=== PATIENT | male | born 1940 | race Caucasian/White ===

== ENCOUNTER 2021-09-23 09:11 | Outpatient (CLI) | payer MEDICARE, OTHER | END 2021-09-23 09:12 | disposition home or self-care (01) | LOC: CT 09:11 | PROVIDERS: ATTEND Internal Medicine Medical Oncology | DX: C90.00 Multiple myeloma not having achieved remission (principal); M89.9 Disorder of bone, unspecified | CPT/HCPCS: 76497 ==

== ENCOUNTER 2022-06-04 23:32 | Emergency (ER) | payer MEDICARE, OTHER ==
[2022-06-05 00:18] LABS: #Eosinphils 0.1 thou/uL (0.0-0.7); #Lymphocytes 1.2 thou/uL (1.20-3.40); #Monocytes 0.6 thou/uL (0.11-0.59); #Neutrophils 7.2 thou/uL (1.40-6.50); %Basophils 0.1 % (0.0-1.0); %Eosinophils 1.5 % (0.0-10.0); %Lymphocytes 13.2 % (21.0-51.0); %Monocytes 6.5 % (0.0-10.0); %Neutrophils 78.7 % (42.0-75.0); Hemoglobin 14.6 g/dL (14.0-18.0); Mean Corpuscular HGB CONC 34.2 g/dL (32.0-36.0); Mean Corpuscular Hemoglobin 34.6 pg (27.0-31.0); Platelet Count 177 10x3/uL (130-400); RBC Distribution Width 12.3 % (11.5-14.5); Red Blood Cell (RBC) Count 4.22 mill/uL (4.70-6.10); White Blood Cell (WBC) Count 9.2 10x3/uL (4.8-10.8)
[2022-06-05 00:41] LABS: ALT (SGPT) 19 U/L (8-55); AST (SGOT) 21 U/L (5-34); Alkaline Phosphatase 67 U/L (40-110); Anion Gap 14 mmol/L (10-20); BUN (Urea Nitrogen) 18 mg/dL (8.4-25.7); Bilirubin, Total 0.9 mg/dL (0.2-1.2); CK (CPK) 102 U/L (30-200); Calc. Creatinine Clearance 0 mL/min (70-130); Calcium 9.4 mg/dL (7.8-10.44); Carbon Dioxide 23 mmol/L (23-31); Chloride 103 mmol/L (98-107); Estimated GFR 48; Globulin 5.2 g/dL (2.4-3.5); Glucose 128 mg/dL (83-110); Lipase 60 U/L (8-78); Potassium 4.2 mmol/L (3.5-5.1); Protein, Total 9.2 g/dL (5.8-8.1); Sodium 136 mmol/L (136-145)
[2022-06-05 01:24] LABS: Bacteria/HPF Rare-Few HPF (None Seen); Bilirubin Negative (Negative); Blood, Urine Negative (Negative); Clarity Clear (Clear); Glucose, Urine (Dipstick) Normal (Negative); Ketone, Urine Trace mg/dL (Negative); Leukocyte 75 Leu/uL (Negative); Nitrite Negative (Negative); Protein, Urine (Dipstick) 30 mg/dL (Neg-Trace); RBC/HPF 0-3 HPF (0-3); Specific Gravity, Urine 1.031 (1.002-1.036); Squamous Epithelial 0-3 HPF (0-3); Urobilinogen Normal mg/dL (Less than 2); pH, Urine 5.5 (5.0-9.0)
== END 2022-06-05 03:40 | disposition home or self-care (01) ==
LOC: ERS 23:32
DX: K59.00 Constipation, unspecified (principal)
CPT/HCPCS: 36415; 74176; 80053; 81003; 81015; 82550; 83690; 85025

== ENCOUNTER 2022-07-25 13:23 | Outpatient (CLI) | payer MEDICARE, OTHER | END 2022-07-25 13:24 | disposition home or self-care (01) | LOC: CT 13:23 | PROVIDERS: ATTEND Internal Medicine Medical Oncology | DX: C90.00 Multiple myeloma not having achieved remission (principal); M89.9 Disorder of bone, unspecified | CPT/HCPCS: 76497 ==

== ENCOUNTER 2022-10-13 12:13 | Emergency (ER) | payer MEDICARE, OTHER ==
[2022-10-13 13:16] LABS: #Eosinphils 0.4 thou/uL (0.0-0.7); #Monocytes 0.4 thou/uL (0.11-0.59); #Neutrophils 3.1 thou/uL (1.40-6.50); %Basophils 0.8 % (0.0-1.0); %Eosinophils 6.6 % (0.0-10.0); %Monocytes 7.7 % (0.0-10.0); %Neutrophils 58.7 % (42.0-75.0); Hemoglobin 14.2 g/dL (14.0-18.0); Mean Corpuscular HGB CONC 32.9 g/dL (32.0-36.0); Mean Corpuscular Hemoglobin 32.9 pg (27.0-31.0); Mean Corpuscular Volume 99.8 fl (78.0-98.0); Mean Platelet Volume 10.4 fL (7.4-10.4); Platelet Count 225 10x3/uL (130-400); Red Blood Cell (RBC) Count 4.32 mill/uL (4.70-6.10); White Blood Cell (WBC) Count 5.3 10x3/uL (4.8-10.8)
[2022-10-13 13:51] LABS: ALT (SGPT) 19 U/L (8-55); AST (SGOT) 16 U/L (5-34); Albumin 3.8 g/dL (3.4-4.8); Alkaline Phosphatase 88 U/L (40-110); Anion Gap 12 mmol/L (10-20); BUN (Urea Nitrogen) 10 mg/dL (8.4-25.7); Bilirubin, Total 0.7 mg/dL (0.2-1.2); Calc. Creatinine Clearance 0 mL/min (70-130); Calcium 9.8 mg/dL (7.8-10.44); Carbon Dioxide 27 mmol/L (23-31); Chloride 100 mmol/L (98-107); Estimated GFR 45; Globulin 5.7 g/dL (2.4-3.5); Glucose 94 mg/dL (83-110); Lipase 38 U/L (8-78); Potassium 4.3 mmol/L (3.5-5.1); Protein, Total 9.5 g/dL (5.8-8.1); Sodium 135 mmol/L (136-145)
[2022-10-13] MEDS ORDERED: HYDROmorphone 0.5 MG/0.5 ML SYRINGE ONE (16:36)
== END 2022-10-13 17:15 | disposition home or self-care (01) ==
LOC: ERS 12:13
DX: M54.6 Pain in thoracic spine (principal); I10 Essential (primary) hypertension; Z79.899 Other long term (current) drug therapy
CPT/HCPCS: 71045; 80053; 83690; 83880; 84484; 85025; 93005; 96374; J1170

== ENCOUNTER 2022-10-26 13:58 | Outpatient (CLI) | payer MEDICARE, OTHER | END 2022-10-26 13:59 | disposition home or self-care (01) | LOC: BICCT 13:58 | PROVIDERS: ATTEND Family Medicine | DX: S22.059A Unspecified fracture of T5-T6 vertebra, initial encounter for closed fracture (principal); S22.051A Stable burst fracture of T5-T6 vertebra, initial encounter for closed fracture; M47.814 Spondylosis without myelopathy or radiculopathy, thoracic region; Z98.1 Arthrodesis status; D47.2 Monoclonal gammopathy | CPT/HCPCS: 36415; 72128; 80053; 82248; 83615; 83883; 84100; 84155; 84165; 84550 ==

== ENCOUNTER 2022-11-17 13:22 | Outpatient (CLI) | payer MEDICARE, OTHER | END 2022-11-17 13:23 | disposition home or self-care (01) | LOC: BICMAMMO 13:22 | PROVIDERS: ATTEND Internal Medicine Medical Oncology | DX: Z13.820 Encounter for screening for osteoporosis (principal); C90.00 Multiple myeloma not having achieved remission; D47.2 Monoclonal gammopathy; M81.0 Age-related osteoporosis without current pathological fracture | CPT/HCPCS: 77080 ==

== ENCOUNTER 2022-12-08 10:36 | Outpatient (CLI) | payer MEDICARE, OTHER ==
[~2022-12-08 10:36] MED LIST: Magnevist 469MG/ML 20 ML VIAL ONE
== END 2022-12-08 10:37 | disposition home or self-care (01) ==
LOC: SJX 10:36
PROVIDERS: ATTEND Neurological Surgery
DX: M84.48XA Pathological fracture, other site, initial encounter for fracture (principal); M48.04 Spinal stenosis, thoracic region; D49.7 Neoplasm of unspecified behavior of endocrine glands and other parts of nervous system
CPT/HCPCS: 72157; A9579

== ENCOUNTER 2022-12-20 11:40 | Outpatient (CLI) | payer MEDICARE, OTHER ==
[~2022-12-20 11:40] MED LIST changes: +Iopamidol 370 76% 100 ML VIAL ONE; -Magnevist 469MG/ML 20 ML VIAL ONE
== END 2022-12-20 11:41 | disposition home or self-care (01) ==
LOC: CT 11:40
PROVIDERS: ATTEND Neurological Surgery
DX: G95.9 Disease of spinal cord, unspecified (principal); I87.1 Compression of vein; K76.9 Liver disease, unspecified; N28.9 Disorder of kidney and ureter, unspecified
CPT/HCPCS: 71260; 74177; Q9967

== ENCOUNTER 2023-03-07 15:52 | Outpatient (CLI) | payer MEDICARE, OTHER | END 2023-03-07 15:53 | disposition home or self-care (01) | LOC: SCSRAD 15:52 | PROVIDERS: ATTEND Family Medicine | DX: M54.50 Low back pain, unspecified (principal); M47.816 Spondylosis without myelopathy or radiculopathy, lumbar region; R93.5 Abnormal findings on diagnostic imaging of other abdominal regions, including retroperitoneum | CPT/HCPCS: 72100 ==

== ENCOUNTER 2023-04-11 14:27 | Inpatient (IN) | payer MEDICARE, OTHER ==
[2023-04-11] MEDS ORDERED: Morphine 4 MG/ML VIAL ONE (15:52)
[2023-04-11] MEDS ORDERED: traMADol HCl 50 MG TAB ONE (18:28)
[2023-04-11 18:48] LABS: #Eosinphils 0.5 thou/uL (0.0-0.7); #Monocytes 0.2 thou/uL (0.11-0.59); #Neutrophils 4.2 thou/uL (1.40-6.50); %Basophils 0.5 % (0.0-1.0); %Eosinophils 8.3 % (0.0-10.0); %Lymphocytes 19.3 % (21.0-51.0); %Monocytes 3.1 % (0.0-10.0); %Neutrophils 68.6 % (42.0-75.0); Hematocrit 38.8 % (42.0-52.0); Mean Corpuscular HGB CONC 33.5 g/dL (32.0-36.0); Mean Corpuscular Volume 101.6 fl (78.0-98.0); Mean Platelet Volume 9.9 fL (7.4-10.4); Platelet Count 244 10x3/uL (130-400); RBC Distribution Width 14.5 % (11.5-14.5); Red Blood Cell (RBC) Count 3.82 mill/uL (4.70-6.10); White Blood Cell (WBC) Count 6.2 10x3/uL (4.8-10.8)
[2023-04-11 19:10] LABS: ALT (SGPT) 62 U/L (8-55); AST (SGOT) 54 U/L (5-34); Alkaline Phosphatase 86 U/L (40-110); Anion Gap 11 mmol/L (10-20); BUN (Urea Nitrogen) 23 mg/dL (8.4-25.7); Bilirubin, Total 0.5 mg/dL (0.2-1.2); Calc. Creatinine Clearance 0 mL/min (70-130); Calcium 8.9 mg/dL (7.8-10.44); Carbon Dioxide 26 mmol/L (23-31); Chloride 103 mmol/L (98-107); Estimated GFR 45; Globulin 7.1 g/dL (2.4-3.5); Glucose 84 mg/dL (83-110); Potassium 3.7 mmol/L (3.5-5.1); Protein, Total 11.1 g/dL (5.8-8.1); Sodium 136 mmol/L (136-145)
[2023-04-11] MEDS ORDERED: Ondansetron ODT 4 MG TAB PO PRN (21:18)
[2023-04-11] MEDS ORDERED: Acetaminophen 325 MG TAB PO PRN (21:18)
[2023-04-11] MEDS ORDERED: Morphine 2 MG/ML VIAL SLOW IVP PRN (21:19)
[2023-04-11 23:15] VITALS: BMI 27.5
[2023-04-12 05:27] LABS: #Eosinphils 0.2 thou/uL (0.0-0.7); #Monocytes 0.2 thou/uL (0.11-0.59); #Neutrophils 3.6 thou/uL (1.40-6.50); %Basophils 0.4 % (0.0-1.0); %Eosinophils 4.7 % (0.0-10.0); %Lymphocytes 16.7 % (21.0-51.0); %Monocytes 3.9 % (0.0-10.0); %Neutrophils 74.1 % (42.0-75.0); Hematocrit 35.1 % (42.0-52.0); Hemoglobin 11.5 g/dL (14.0-18.0); Mean Corpuscular HGB CONC 32.8 g/dL (32.0-36.0); Mean Corpuscular Hemoglobin 33.9 pg (27.0-31.0); Mean Corpuscular Volume 103.5 fl (78.0-98.0); Platelet Count 210 10x3/uL (130-400); RBC Distribution Width 14.6 % (11.5-14.5); Red Blood Cell (RBC) Count 3.39 mill/uL (4.70-6.10); White Blood Cell (WBC) Count 4.9 10x3/uL (4.8-10.8)
[2023-04-12 05:58] LABS: BUN (Urea Nitrogen) 21 mg/dL (8.4-25.7); Calc. Creatinine Clearance 56 mL/min (70-130); Calcium 8.3 mg/dL (7.8-10.44); Carbon Dioxide 25 mmol/L (23-31); Chloride 105 mmol/L (98-107); Estimated GFR 63; Glucose 112 mg/dL (83-110); Potassium 4.2 mmol/L (3.5-5.1); Sodium 136 mmol/L (136-145)
[2023-04-12 06:12] LABS: Anion Gap 10 mmol/L (10-20)
[2023-04-12] MEDS: Famotidine 20 MG TAB PO SCH ×2 (08:57→20:52)
[2023-04-12] MEDS ORDERED: traMADol HCl 50 MG TAB PO PRN (13:31)
[2023-04-12] MEDS ORDERED: Acetaminophen 500 MG TAB PO PRN (13:31)
[2023-04-12] MEDS: traMADol HCl 50 MG TAB PO PRN (23:19)
[2023-04-13] MEDS: traMADol HCl 50 MG TAB PO PRN ×2 (05:48→21:45)
[2023-04-13] MEDS: Famotidine 20 MG TAB PO SCH ×2 (09:34→21:46)
[2023-04-13] MEDS: Calcitonin,Salmon,Synthetic 200 Units NASAL PUMP 3.7 ML L NARE SCH ×2 (14:46→17:49)
[2023-04-14] MEDS ORDERED: Losartan 25 MG TAB PO SCH (09:00)
[2023-04-14] MEDS ORDERED: Calcitonin,Salmon,Synthetic 200 Units NASAL PUMP 3.7 ML R NARE SCH (09:00)
[2023-04-14] MEDS: Famotidine 20 MG TAB PO SCH (09:19)
[2023-04-14] MEDS: Calcitonin,Salmon,Synthetic 200 Units NASAL PUMP 3.7 ML L NARE SCH (09:19)
[2023-04-14] MEDS: traMADol HCl 50 MG TAB PO PRN (12:08)
[2023-04-14 12:48] VITALS: BP 167/96; TEMP 98.7
== END 2023-04-14 13:44 | disposition home or self-care (01) | DRG 552 ==
LOC: ERS 14:27 → SURG A 20:18 → OBSVTOIN 04-12 13:29
PROVIDERS: ADMIT Surgery; ATTEND Internal Medicine
DX: S22.081A Stable burst fracture of T11-T12 vertebra, initial encounter for closed fracture (principal); W18.30XA Fall on same level, unspecified, initial encounter; I10 Essential (primary) hypertension; Z79.899 Other long term (current) drug therapy; Z88.8 Allergy status to other drugs, medicaments and biological substances; Z90.49 Acquired absence of other specified parts of digestive tract; Z96.653 Presence of artificial knee joint, bilateral; S22.051A Stable burst fracture of T5-T6 vertebra, initial encounter for closed fracture; M81.0 Age-related osteoporosis without current pathological fracture; G89.29 Other chronic pain; M54.9 Dorsalgia, unspecified
CPT/HCPCS: 36415; 72128; 72131; 72146; 72148; 80048; 80053; 85025; 86140; 96372; J2270

== ENCOUNTER 2023-05-24 08:31 | Day surgery (SDC) | payer MEDICARE, OTHER ==
[2023-05-24 08:51] LABS: #Eosinphils 0.3 thou/uL (0.0-0.7); #Monocytes 0.3 thou/uL (0.11-0.59); #Neutrophils 2.2 thou/uL (1.40-6.50); %Basophils 0.5 % (0.0-1.0); %Lymphocytes 32.8 % (21.0-51.0); %Monocytes 6.1 % (0.0-10.0); %Neutrophils 52.4 % (42.0-75.0); Hematocrit 37.4 % (42.0-52.0); Hemoglobin 12.3 g/dL (14.0-18.0); Mean Corpuscular HGB CONC 32.9 g/dL (32.0-36.0); Mean Corpuscular Hemoglobin 34.9 pg (27.0-31.0); Mean Corpuscular Volume 106.3 fl (78.0-98.0); Mean Platelet Volume 9.2 fL (7.4-10.4); Platelet Count 208 10x3/uL (130-400); RBC Distribution Width 14.6 % (11.5-14.5); Red Blood Cell (RBC) Count 3.52 mill/uL (4.70-6.10); White Blood Cell (WBC) Count 4.1 10x3/uL (4.8-10.8)
[2023-05-24 09:05] LABS: INR-International Normal Ratio 1.1; PTT 25.9 sec (22.9-36.1); Prothrombin Time 14.1 sec (12.0-14.7)
[2023-05-24] MEDS ORDERED: Lidocaine 1% PF 5 ML VIAL ONE (09:59)
== END 2023-05-24 11:30 | disposition home or self-care (01) ==
LOC: CT 08:31
PROVIDERS: ATTEND Internal Medicine
PROC: 079T3ZX Drainage of Bone Marrow, Percutaneous Approach, Diagnostic (ICD-10-PCS; principal; 2023-05-24)
DX: C90.00 Multiple myeloma not having achieved remission (principal); I10 Essential (primary) hypertension; Z88.6 Allergy status to analgesic agent
CPT/HCPCS: 20225; 77012; 85025; 85097; 85610; 85730; 88184; 88185; 88237; 88264; 88280; 88305; 88311; 88313; 88342; 88365

== ENCOUNTER 2023-06-07 12:30 | Outpatient (CLI) | payer MEDICARE, OTHER | END 2023-06-07 12:31 | LOC: PET 12:30 | PROVIDERS: ATTEND Internal Medicine | DX: C90.00 Multiple myeloma not having achieved remission (principal) | CPT/HCPCS: 78815; A9552 ==

== ENCOUNTER 2023-09-20 09:06 | Outpatient (CLI) | payer MEDICARE, OTHER ==
[2023-09-20 11:18] LABS: #Basophils 0.02 10x3/uL (0.0-0.2); #Eosinphils 0.11 10x3/uL (0.0-0.5); #Monocytes 0.15 10x3/uL (0.0-1.1); #Neutrophils 5.61 10x3/uL (1.5-8.4); %Basophils 0.3 % (0.0-2.0); %Eosinophils 1.6 % (0.0-6.0); %Lymphocytes 11.6 % (18.0-47.0); %Monocytes 2.2 % (0.0-10.0); %Neutrophils 83.9 % (40.0-75.0); Hemoglobin 11.7 g/dL (13.5-17.5); Mean Corpuscular HGB CONC 33.4 g/dL (32.0-36.0); Mean Corpuscular Hemoglobin 34.7 pg (27.0-33.0); Mean Corpuscular Volume 103.9 fL (81.2-95.1); Mean Platelet Volume 10.2 fL (7.4-10.4); Platelet Count 211 10x3/uL (150-450); RBC Distribution Width 13.6 % (11.5-14.5); Red Blood Cell (RBC) Count 3.37 10x6/uL (4.32-5.72); White Blood Cell (WBC) Count 6.7 10x3/uL (3.5-10.5)
[2023-09-20 11:20] LABS: ALT (SGPT) 27 U/L (8-55); AST (SGOT) 27 U/L (5-34); Albumin 3.2 g/dL (3.4-4.8); Alkaline Phosphatase 64 U/L (40-110); Anion Gap 11 mmol/L (10-20); BUN (Urea Nitrogen) 16 mg/dL (8.4-25.7); Bilirubin, Total 0.9 mg/dL (0.2-1.2); Calc. Creatinine Clearance 0 mL/min (70-130); Calcium 9.1 mg/dL (7.8-10.44); Carbon Dioxide 27 mmol/L (23-31); Chloride 107 mmol/L (98-107); Estimated GFR 50; Globulin 5.6 g/dL (2.4-3.5); Glucose 100 mg/dL (83-110); Protein, Total 8.8 g/dL (5.8-8.1); Sodium 141 mmol/L (136-145)
== END 2023-09-20 09:07 | disposition home or self-care (01) ==
LOC: LABBT 09:06
PROVIDERS: ATTEND Surgery
DX: Z01.818 Encounter for other preprocedural examination (principal); K40.90 Unilateral inguinal hernia, without obstruction or gangrene, not specified as recurrent
CPT/HCPCS: 80053; 85025; 93005; 93010

== ENCOUNTER 2023-09-22 06:33 | Day surgery (SDC) | payer MEDICARE, OTHER ==
[2023-09-20 10:04] VITALS: BMI 25.8
[2023-09-22] MEDS ORDERED: Bupivacaine 0.25% HCL 30 ML VIAL ONE (06:43)
[2023-09-22] MEDS ORDERED: EPINEPHrine 1 MG/ML VIAL ONE (06:43)
[2023-09-22] MEDS ORDERED: Lidocaine 1% PF 5 ML VIAL ONE (06:52)
[2023-09-22] MEDS ORDERED: PROPOFOL 20 ML ONE (06:52)
[2023-09-22] MEDS ORDERED: fentaNYL PF 100 MCG/2 ML SYRINGE ONE (06:52)
[2023-09-22] MEDS ORDERED: LevoFLOXacin D5W 500 mg (100 mL) BAG ONE (07:32)
[2023-09-22] MEDS ORDERED: Rocuronium Bromide 10 MG/ML (10ML VIAL) ONE (07:44)
[2023-09-22] MEDS ORDERED: Hydrocortisone Sod Succ/PF 100 mg/2 ml Vial ONE (07:50)
[2023-09-22] MEDS ORDERED: ePHEDrine Sulfate 50 MG/10 ML VIAL ONE (08:02)
[2023-09-22] MEDS ORDERED: SUGAMMADEX SODIUM 200 MG/2 ML VIAL ONE (08:33)
[2023-09-22] MEDS ORDERED: Ondansetron PF 4 MG/2 ML Vial ONE (08:39)
[2023-09-22] MEDS ORDERED: fentaNYL 50 mcg/mL 1 mL Vial ONE (09:05)
== END 2023-09-22 10:38 | disposition home or self-care (01) ==
LOC: SDC 06:33
PROVIDERS: ATTEND Surgery
PROC: 0YQ54ZZ Repair Right Inguinal Region, Percutaneous Endoscopic Approach (ICD-10-PCS; principal; 2023-09-22)
DX: K40.90 Unilateral inguinal hernia, without obstruction or gangrene, not specified as recurrent (principal); I12.9 Hypertensive chronic kidney disease with stage 1 through stage 4 chronic kidney disease, or unspecified chronic kidney disease; N18.30 Chronic kidney disease, stage 3 unspecified; F32.A Depression, unspecified; M81.0 Age-related osteoporosis without current pathological fracture; G89.29 Other chronic pain; Z79.82 Long term (current) use of aspirin; Z79.899 Other long term (current) drug therapy; Z88.8 Allergy status to other drugs, medicaments and biological substances; Z88.6 Allergy status to analgesic agent; Z88.1 Allergy status to other antibiotic agents; Z91.011 Allergy to milk products; Z98.52 Vasectomy status; Z96.653 Presence of artificial knee joint, bilateral; Z98.890 Other specified postprocedural states
CPT/HCPCS: 49650; A4314; C1781; J0171; J0665; J1720; J1956; J2405; J2704; J3010

== ENCOUNTER 2024-01-01 14:23 | Outpatient (CLI) | payer MEDICARE, OTHER | END 2024-01-01 14:24 | disposition home or self-care (01) | LOC: BICMAMMO 14:23 | PROVIDERS: ATTEND Internal Medicine | DX: M85.851 Other specified disorders of bone density and structure, right thigh (principal); M81.0 Age-related osteoporosis without current pathological fracture; Z00.00 Encounter for general adult medical examination without abnormal findings; I10 Essential (primary) hypertension; Z79.899 Other long term (current) drug therapy | CPT/HCPCS: 36415; 77080; 80053; 80061; 85025 ==

== ENCOUNTER 2024-05-27 09:30 | Outpatient (CLI) | payer MEDICARE, OTHER | END 2024-05-27 09:31 | disposition home or self-care (01) | LOC: PET 09:30 | PROVIDERS: ATTEND Internal Medicine | DX: C90.00 Multiple myeloma not having achieved remission (principal); M85.88 Other specified disorders of bone density and structure, other site; R94.8 Abnormal results of function studies of other organs and systems | CPT/HCPCS: 78815; A9552 ==